=== PATIENT | female | born 1995 | race Caucasian/White ===

== ENCOUNTER 2021-05-10 11:07 | Emergency (ER) | payer SELFPAY ==
[~2021-05-10] VITALS: Ht 154.9 cm
[2021-05-10] MEDS ORDERED: CLEOCIN HCL150 MG PO (11:38)
== END 2021-05-10 11:42 | disposition home or self-care (01) ==
LOC: ED 11:07
DX: K08.89 Other specified disorders of teeth and supporting structures (principal); Z88.0 Allergy status to penicillin

== ENCOUNTER 2021-05-11 02:54 | Emergency (ER) | payer SELFPAY ==
[~2021-05-11 02:54] MED LIST: CLEOCIN HCL150 MG PO
== END 2021-05-11 03:43 | disposition home or self-care (01) ==
LOC: ED 02:54
DX: K08.89 Other specified disorders of teeth and supporting structures (principal); F17.200 Nicotine dependence, unspecified, uncomplicated

== ENCOUNTER 2022-05-09 09:43 | Emergency (ER) | payer MEDICAID ==
[~2022-05-09] VITALS: Ht 154.9 cm; Wt 108.4 kg
== END 2022-05-09 19:12 | disposition left against medical advice (07) ==
LOC: ED 09:43
DX: J02.9 Acute pharyngitis, unspecified (principal); Z88.0 Allergy status to penicillin

== ENCOUNTER 2023-10-24 09:44 | Emergency (ER) | payer OTHER ==
[~2023-10-24] VITALS: Ht 152.4 cm; Wt 113.4 kg
[2023-10-24] MEDS ORDERED: OMEPRAZOLE MAGN20 MG PO (10:29)
[2023-10-24] MEDS ORDERED: PERCOCET 10-321 EACH PO (10:29)
[2023-10-24] MEDS ORDERED: VYVANSE20 MG PO (10:30)
[2023-10-24] MEDS ORDERED: TAMIFLU 75MG CA75 MG PO (12:35)
== END 2023-10-24 12:32 | disposition home or self-care (01) ==
LOC: ED 09:44
DX: J10.1 Influenza due to other identified influenza virus with other respiratory manifestations (principal); Z20.822 Contact with and (suspected) exposure to COVID-19; R51.9 Headache, unspecified; Z88.0 Allergy status to penicillin